=== PATIENT | female | born 1955 | race Caucasian/White ===

== ENCOUNTER 2022-02-27 13:11 | Emergency (ER) | payer OTHER ==
[~2022-02-27] VITALS: Ht 157.5 cm; Wt 64.4 kg
--- NOTE | 2022-02-27 13:24 | NUR ---
DR SANTOS AT BEDSIDE
[2022-02-27] MEDS ORDERED: IBUPROFEN 600 MG TABLET PO ONE (14:30)
[2022-02-27] MEDS ORDERED: ACETAMINOPHEN ES 500 MG TABLET PO ONE (14:30)
[2022-02-27] MEDS ORDERED: ACETAMINOPHEN ES 500 MG TABLET ONE (15:02)
[2022-02-27] MEDS ORDERED: IBUPROFEN 600 MG TABLET ONE (15:02)
[2022-02-27] MEDS ORDERED: IBUP-1957 PO (15:34)
[2022-02-27] MEDS ORDERED: HYDR-3972 PO (15:34)
--- NOTE | 2022-02-27 16:40 | NUR ---
Patient discharged to home in stable condition. Written and verbal after care instructions given. Patient verbalizes understanding of instruction.
[2022-02-27 17:10] VITALS: BP 132/84
== END 2022-02-27 16:45 | disposition home or self-care (01) ==
LOC: ER 13:16
DX: S62.396A Other fracture of fifth metacarpal bone, right hand, initial encounter for closed fracture (principal); S39.012A Strain of muscle, fascia and tendon of lower back, initial encounter; S20.219A Contusion of unspecified front wall of thorax, initial encounter; V49.49XA Driver injured in collision with other motor vehicles in traffic accident, initial encounter; Y93.89 Activity, other specified; Y92.413 State road as the place of occurrence of the external cause; Y99.8 Other external cause status
CPT/HCPCS: 72131-TC; 73130-TC; 73630-TC